=== PATIENT | female | born 1975 | race African-American/Black ===

== ENCOUNTER 2016-09-23 22:32 | Emergency (ER) | payer MEDICARE, MEDICAID ==
[~2016-09-23] VITALS: Ht 152.4 cm; Wt 72.6 kg
[~2016-09-23 22:32] MED LIST: ALBU8.5H5 INH; DIAZ5TAB PO
[2016-09-23] MEDS ORDERED: METOCLOPRAMIDE 5 MG/ML, 2ML IVPush ONE (23:30)
[2016-09-23] MEDS ORDERED: KETOROLAC 30 MG/1 ML IVPush ONE (23:30)
[2016-09-23] MEDS ORDERED: SODIUM CHLORIDE 0.9% 1,000ML IVBOLUS ONE (23:30)
[2016-09-23] MEDS ORDERED: DIPHENHYDRAMINE 50 MG/ML, 1ML IVPush ONE (23:30)
[2016-09-23 23:45] LABS: HEMOGLOBIN 13.2 g/dL (11.7-16.4)
[2016-09-23 23:52] LABS: BLOOD UREA NITROGEN 12 mg/dL (7-18)
[2016-09-24] MEDS ORDERED: METOCLOPRAMIDE 5 MG/ML, 2ML IM ONE (03:30)
[2016-09-24] MEDS ORDERED: KETOROLAC 30 MG/1 ML IM ONE (03:30)
[2016-09-24] MEDS ORDERED: DIPHENHYDRAMINE 25 MG CAPSULE PO ONE (03:30)
[2016-09-24] MEDS ORDERED: DEXAMETHASONE 4 MG TABLET PO ONE (03:30)
[2016-09-24] MEDS ORDERED: KETOROLAC 30 MG/1 ML ONE (03:37)
[2016-09-24] MEDS ORDERED: DEXAMETHASONE 4 MG TABLET ONE (03:38)
[2016-09-24] MEDS ORDERED: METOCLOPRAMIDE 5 MG/ML, 2ML ONE (03:38)
[2016-09-24] MEDS ORDERED: DIPHENHYDRAMINE 50 MG CAPSULE ONE (03:38)
[2016-09-24 04:28] VITALS: BP 133/98
== END 2016-09-24 04:31 | disposition home or self-care (01) ==
LOC: ED 23:59
DX: G89.29 Other chronic pain (principal); G43.909 Migraine, unspecified, not intractable, without status migrainosus; J45.909 Unspecified asthma, uncomplicated; I10 Essential (primary) hypertension
CPT/HCPCS: 36415; 80048; 82040; 85025; 96372; 99284; J1885; J2765; Q0163

== ENCOUNTER 2016-11-02 13:32 | Emergency (ER) | payer MEDICARE, MEDICAID ==
[~2016-11-02] VITALS: Ht 152.4 cm; Wt 71.7 kg
[2016-11-02] MEDS ORDERED: PROP10TA PO (14:06)
[2016-11-02] MEDS ORDERED: SUMA100T4 PO (14:06)
[2016-11-02] MEDS ORDERED: SODIUM CHLORIDE 0.9% 1,000 ML IV ONE (14:41)
[2016-11-02] MEDS ORDERED: KETOROLAC 30 MG/1 ML ONE (14:50)
[2016-11-02] MEDS ORDERED: ASPIRIN 81 MG TABLET CHEW ONE (14:50)
[2016-11-02] MEDS ORDERED: ONDANSETRON 2MG/ML, 2ML ONE (14:50)
[2016-11-02] MEDS ORDERED: MORPHINE SULFATE 4 MG/ML, 1ML ONE ×2 (14:50→15:37)
[2016-11-02] MEDS: MORPHINE SULFATE 4 MG/ML, 1ML IVPush PRN ×2 (14:54→15:40)
[2016-11-02] MEDS ORDERED: ONDANSETRON 2MG/ML, 2ML IVPush ONE (15:00)
[2016-11-02] MEDS ORDERED: ASPIRIN 81 MG TABLET CHEW PO ONE (15:00)
[2016-11-02] MEDS ORDERED: KETOROLAC 30 MG/1 ML IVPush ONE (15:00)
[2016-11-02 15:10] LABS: ASPARTATE AMINO TRANSFERASE 17 U/L (15-37); BLOOD UREA NITROGEN 11 mg/dL (7-18)
[2016-11-02 15:14] LABS: IS PT STATUS REG ER OR PRE ER? YES
[2016-11-02 15:50] VITALS: BP 114/80
== END 2016-11-02 15:58 | disposition home or self-care (01) ==
LOC: ED 15:52
DX: R07.89 Other chest pain (principal); J45.909 Unspecified asthma, uncomplicated
CPT/HCPCS: 36415; 71010; 80053; 84484; 85025; 85610; 93005; 96361; 96374; 96375; 96376; 99285; J1885; J2405; J7030

== ENCOUNTER 2016-11-16 19:46 | Emergency (ER) | payer MEDICARE, MEDICAID ==
[~2016-11-16] VITALS: Ht 152.4 cm; Wt 72.5 kg
[~2016-11-16 19:46] MED LIST changes: +PROP10TA PO; +SUMA100T4 PO
[2016-11-16] MEDS ORDERED: ASPIRIN 81 MG TABLET CHEW PO ONE (20:30)
[2016-11-16] MEDS ORDERED: METOPROLOL 1 MG/ML, 5ML IVPush PRN (20:30)
[2016-11-16] MEDS ORDERED: NITROGLYCERIN SINGLE TAB 0.4 MG SL PRN (20:30)
[2016-11-16] MEDS ORDERED: SODIUM CHLORIDE FLUSH 10ML SYR IVF ONE (20:30)
[2016-11-16] MEDS ORDERED: NITROGLYCERIN SINGLE TAB 0.4 MG SL ONE (20:37)
[2016-11-16] MEDS ORDERED: ASPIRIN 81 MG TABLET CHEW ONE (20:37)
[2016-11-16] MEDS ORDERED: METOPROLOL 1 MG/ML, 5ML ONE (20:37)
[2016-11-16 20:58] LABS: ASPARTATE AMINO TRANSFERASE 25 U/L (15-37); BLOOD UREA NITROGEN 11 mg/dL (7-18)
[2016-11-16 21:05] VITALS: BP 125/89
[2016-11-16 21:08] LABS: IS PT STATUS REG ER OR PRE ER? YES
[2016-11-16] MEDS ORDERED: ONDANSETRON 2MG/ML, 2ML ONE (21:09)
[2016-11-16 21:17] LABS: DIFF TOTAL CELLS COUNTED 100 CELL DIFF
[2016-11-16 21:24] LABS: VERIFY COUNTS? YES
[2016-11-16] MEDS ORDERED: ONDANSETRON 2MG/ML, 2ML IVPush ONE (21:30)
[2016-11-16] MEDS ORDERED: METRONIDAZOLE PMX 500MG/100ML 100 ML ONE (22:00)
== END 2016-11-16 22:36 | disposition home or self-care (01) ==
LOC: ED 21:50
DX: G43.909 Migraine, unspecified, not intractable, without status migrainosus (principal); R07.89 Other chest pain; I10 Essential (primary) hypertension; J45.909 Unspecified asthma, uncomplicated; F12.90 Cannabis use, unspecified, uncomplicated
CPT/HCPCS: 36415; 71010; 80053; 84484; 85025; 93005; 96374; 96375; 99285; J2405

== ENCOUNTER 2016-11-21 10:55 | Emergency (ER) | payer MEDICARE, MEDICAID ==
[~2016-11-21] VITALS: Ht 152.4 cm; Wt 73.0 kg
[2016-11-21] MEDS ORDERED: KETOROLAC 30 MG/1 ML IM ONE (11:30)
[2016-11-21] MEDS ORDERED: DIAZEPAM 5 MG TABLET PO ONE (11:30)
[2016-11-21] MEDS ORDERED: KETOROLAC 30 MG/1 ML ONE (11:49)
[2016-11-21] MEDS ORDERED: DIAZEPAM 5 MG TABLET ONE (11:49)
[2016-11-21 13:06] VITALS: BP 136/79
== END 2016-11-21 13:13 | disposition home or self-care (01) ==
LOC: ED 12:15
DX: S39.012A Strain of muscle, fascia and tendon of lower back, initial encounter (principal); I10 Essential (primary) hypertension; J45.909 Unspecified asthma, uncomplicated; X58.XXXA Exposure to other specified factors, initial encounter; Y93.89 Activity, other specified; Y92.89 Other specified places as the place of occurrence of the external cause; Y99.9 Unspecified external cause status
CPT/HCPCS: 72110; 96372; 99284; J1885

== ENCOUNTER 2017-01-14 20:51 | Emergency (ER) | payer MEDICARE, MEDICAID ==
[~2017-01-14] VITALS: Ht 152.4 cm; Wt 70.0 kg
[2017-01-14] MEDS ORDERED: ALBUTEROL SULFATE 2.5 MG/3 ML NPPB ONE (21:30)
[2017-01-14] MEDS ORDERED: ALBUTEROL SULFATE 2.5 MG/3 ML ONE (21:31)
[2017-01-14] MEDS ORDERED: ACETAMINOPHEN 325 MG TABLET PO ONE (22:00)
[2017-01-14 22:15] LABS: BLOOD UREA NITROGEN 10 mg/dL (7-18)
[2017-01-14 22:20] LABS: IS PT STATUS REG ER OR PRE ER? YES
[2017-01-14] MEDS ORDERED: ACETAMINOPHEN 325 MG TABLET ONE (22:32)
[2017-01-14 22:37] VITALS: BP 118/91
== END 2017-01-14 22:58 | disposition home or self-care (01) ==
LOC: ED 21:30
DX: J45.31 Mild persistent asthma with (acute) exacerbation (principal); I10 Essential (primary) hypertension; F17.200 Nicotine dependence, unspecified, uncomplicated
CPT/HCPCS: 36415; 71010; 80048; 82040; 84484; 85025; 93005; 94640; 99285; J7512; J7613

== ENCOUNTER 2017-07-28 17:16 | Emergency (ER) | payer MEDICARE, MEDICAID ==
[2017-07-28] MEDS ORDERED: ASPIRIN 81 MG TABLET CHEW PO ONE (17:30)
[2017-07-28] MEDS ORDERED: SODIUM CHLORIDE FLUSH 10ML SYR IVF ONE (17:30)
[2017-07-28] MEDS ORDERED: PLEASE ENTER HEIGHT AND WEIGHT MC SCH (17:30)
[2017-07-28 17:50] LABS: BASOPHILS # (AUTO) 0.03 x10^3/uL (0-0.1); BASOPHILS % (AUTO) 1 % (0-1); EOSINOPHILS # (AUTO) 0.08 x10^3/uL (0-0.4); EOSINOPHILS % (AUTO) 1 % (1-7); LYMPHOCYTES # (AUTO) 2.52 x10^3/uL (1-3.4); LYMPHOCYTES % (AUTO) 36 % (22-44); MD NO; MEAN CORPUSCULAR HGB CONC 33.8 g/dL (32.4-35.8); MEAN CORPUSCULAR VOLUME 94.7 fL (80-100); MEAN PLATELET VOLUME 7.9 fL (7.4-10.4); MONOCYTES # (AUTO) 0.63 x10^3/uL (0.2-0.8); MONOCYTES % (AUTO) 9 % (2-9); NEUTROPHILS # (AUTO) 3.75 x10^3/uL (1.8-6.8); NEUTROPHILS % (AUTO) 53 % (42-75); PLATELET COUNT 352 x10^3/uL (130-400); RED BLOOD COUNT 4.22 x10^6/uL (3.82-5.3); RED CELL DISTRIBUTION WIDTH 13.9 % (9.6-15.2)
[2017-07-28 18:00] LABS: ALBUMIN 3.6 g/dL (3.4-5.0); ANION GAP 5 mmol/L (5-15); CALCIUM 9.1 mg/dL (8.5-10.1); CHLORIDE 100 mmol/L (98-107); CREATININE 0.81 mg/dL (0.55-1.02)
[2017-07-28] MEDS ORDERED: SODIUM CHLORIDE 0.9% 1,000ML IVBOLUS ONE (18:00)
[2017-07-28 18:04] LABS: TROPONIN I < 0.015 ng/mL (0.000-0.045)
[2017-07-28] MEDS ORDERED: POTASSIUM CHLORIDE 20 MEQ TAB.ER.PRT PO ONE (19:00)
[2017-07-28] MEDS ORDERED: ASPIRIN 81 MG TABLET CHEW ONE (19:06)
[2017-07-28] MEDS ORDERED: POTASSIUM CHLORIDE 20 MEQ TAB.ER.PRT ONE (19:06)
[2017-07-28] MEDS ORDERED: ACETAMINOPHEN 325 MG TABLET ONE (19:24)
[2017-07-28] MEDS ORDERED: ACETAMINOPHEN 325 MG TABLET PO ONE (20:00)
[2017-07-28 20:18] VITALS: BP 112/72
== END 2017-07-28 20:21 | disposition home or self-care (01) ==
LOC: ED 20:00
DX: E87.6 Hypokalemia (principal); E86.0 Dehydration; R07.9 Chest pain, unspecified; I10 Essential (primary) hypertension; G43.909 Migraine, unspecified, not intractable, without status migrainosus
CPT/HCPCS: 36415; 71045; 80048; 82040; 83880; 84484; 85025; 93005; 99285; J7030

== ENCOUNTER 2018-01-24 12:53 | Emergency (ER) | payer MEDICARE, MEDICAID ==
[~2018-01-24] VITALS: Ht 152.4 cm; Wt 60.0 kg
[2018-01-24] MEDS ORDERED: METHOCARBAMOL 750 MG TABLET ONE (13:22)
[2018-01-24] MEDS ORDERED: HYDROcodone/APAP 5/325 TABLET ONE (13:23)
[2018-01-24] MEDS ORDERED: HYDROcodone/APAP 5/325 TABLET PO ONE (13:30)
[2018-01-24] MEDS ORDERED: METHOCARBAMOL 750 MG TABLET PO ONE (13:30)
[2018-01-24 14:35] VITALS: BP 129/90
== END 2018-01-24 14:36 | disposition home or self-care (01) ==
LOC: ED 14:04
DX: S16.1XXA Strain of muscle, fascia and tendon at neck level, initial encounter (principal); M47.896 Other spondylosis, lumbar region; M47.892 Other spondylosis, cervical region; I10 Essential (primary) hypertension; J45.909 Unspecified asthma, uncomplicated; V43.62XA Car passenger injured in collision with other type car in traffic accident, initial encounter; Y93.89 Activity, other specified; Y92.89 Other specified places as the place of occurrence of the external cause; Y99.8 Other external cause status
CPT/HCPCS: 72050; 72110; 99284

== ENCOUNTER 2018-01-29 15:11 | Emergency (ER) | payer MEDICARE, MEDICAID ==
[~2018-01-29] VITALS: Ht 152.4 cm; Wt 59.5 kg
[2018-01-29] MEDS ORDERED: PLEASE ENTER HEIGHT AND WEIGHT MC SCH (15:30)
[2018-01-29] MEDS ORDERED: SODIUM CHLORIDE FLUSH 10ML SYR IVF ONE (15:30)
[2018-01-29] MEDS ORDERED: ONDANSETRON 2MG/ML, 2ML IVPush ONE (15:30)
[2018-01-29] MEDS ORDERED: ONDANSETRON 2MG/ML, 2ML ONE (15:38)
[2018-01-29] MEDS ORDERED: MORPHINE SULFATE 4 MG/ML, 1ML ONE ×2 (15:38→16:28)
[2018-01-29] MEDS: MORPHINE SULFATE 4 MG/ML, 1ML IVPush PRN ×2 (15:40→16:35)
[2018-01-29 16:00] LABS: BASOPHILS # (AUTO) 0.02 x10^3/uL (0-0.1); BASOPHILS % (AUTO) 0 % (0-1); EOSINOPHILS # (AUTO) 0.05 x10^3/uL (0-0.4); EOSINOPHILS % (AUTO) 1 % (1-7); LYMPHOCYTES # (AUTO) 2.62 x10^3/uL (1-3.4); LYMPHOCYTES % (AUTO) 34 % (22-44); MD NO; MEAN CORPUSCULAR HEMOGLOBIN 32.8 pg (27.0-34.8); MEAN CORPUSCULAR HGB CONC 34.3 g/dL (32.4-35.8); MEAN CORPUSCULAR VOLUME 95.5 fL (80-100); MEAN PLATELET VOLUME 8.2 fL (7.4-10.4); MONOCYTES # (AUTO) 0.84 x10^3/uL (0.2-0.8); MONOCYTES % (AUTO) 11 % (2-9); NEUTROPHILS % (AUTO) 54 % (42-75); PLATELET COUNT 238 x10^3/uL (130-400); RED BLOOD COUNT 4.44 x10^6/uL (3.82-5.3)
[2018-01-29 16:10] LABS: ALBUMIN 3.8 g/dL (3.4-5.0); ANION GAP 10 mmol/L (5-15); CHLORIDE 103 mmol/L (98-107)
[2018-01-29 16:14] LABS: TROPONIN I < 0.015 ng/mL (0.000-0.045)
[2018-01-29] MEDS ORDERED: POTASSIUM CHLORIDE 20 MEQ TAB.ER.PRT ONE (16:28)
[2018-01-29] MEDS ORDERED: POTASSIUM CHLORIDE 20 MEQ TAB.ER.PRT PO ONE (16:30)
[2018-01-29] MEDS ORDERED: HYDROmorphone 2 MG/ML, 1ML ONE (19:32)
[2018-01-29] MEDS ORDERED: OMNIPAQUE 350 MG/ML, 100ML BOTTLE ONE (19:36)
[2018-01-29] MEDS ORDERED: HYDROmorphone 2 MG/ML, 1ML IVPush PRN (20:00)
[2018-01-29 21:05] VITALS: BP 115/79
[2018-01-29] MEDS ORDERED: DIPHENHYDRAMINE 25 MG CAPSULE ONE (21:09)
[2018-01-29] MEDS ORDERED: DIPHENHYDRAMINE 25 MG CAPSULE PO ONE (21:30)
== END 2018-01-29 21:12 | disposition home or self-care (01) ==
LOC: ED 18:13
DX: R07.9 Chest pain, unspecified (principal); M25.512 Pain in left shoulder; J45.909 Unspecified asthma, uncomplicated; I10 Essential (primary) hypertension; E87.6 Hypokalemia
CPT/HCPCS: 36415; 71045; 71275; 73030; 80048; 82040; 84484; 84703; 85025; 85379; 93005; 96374; 96375; 96376; 99285; J1170; J2405; Q0163; Q9967

== ENCOUNTER → 2018-03-13 | Outpatient (CLI) | payer MEDICARE, MEDICAID | END | disposition home or self-care (01) | LOC: CFH 07:32 | PROVIDERS: ATTEND Nurse Practitioner | DX: M50.123 Cervical disc disorder at C6-C7 level with radiculopathy (principal) | CPT/HCPCS: 72050; 72141 ==

== ENCOUNTER 2018-04-18 18:22 | Emergency (ER) | payer MEDICARE, MEDICAID ==
[~2018-04-18] VITALS: Ht 165.1 cm; Wt 59.1 kg
[2018-04-18] MEDS ORDERED: LORazepam 2 MG/ML, 1ML IVPush ONE (19:00)
[2018-04-18] MEDS ORDERED: SODIUM CHLORIDE 0.9% 1,000ML IVBOLUS ONE (19:00)
[2018-04-18] MEDS ORDERED: LORazepam 2 MG/ML, 1ML ONE (19:04)
[2018-04-18 19:16] LABS: MEAN CORPUSCULAR HEMOGLOBIN 32.8 pg (27.0-34.8); MEAN CORPUSCULAR HGB CONC 34.2 g/dL (32.4-35.8); MEAN CORPUSCULAR VOLUME 95.9 fL (80-100); MEAN PLATELET VOLUME 7.8 fL (7.4-10.4); PLATELET COUNT 409 x10^3/uL (130-400); RED BLOOD COUNT 4.38 x10^6/uL (3.82-5.3); RED CELL DISTRIBUTION WIDTH 13.7 % (9.6-15.2)
[2018-04-18 19:29] LABS: ALBUMIN 3.6 g/dL (3.4-5.0); ANION GAP 15 mmol/L (5-15); CALCIUM 8.5 mg/dL (8.5-10.1); CHLORIDE 98 mmol/L (98-107)
[2018-04-18 19:35] LABS: ALANINE AMINOTRANSFERASE 28 U/L (12-78); ALKALINE PHOSPHATASE 57 U/L (45-117); BILIRUBIN,TOTAL 0.5 mg/dL (0.2-1.0); CREATININE 0.85 mg/dL (0.55-1.02); TOTAL PROTEIN 9.1 g/dL (6.4-8.2); TROPONIN I < 0.015 ng/mL (0.000-0.045)
[2018-04-18 19:55] LABS: MD YES
[2018-04-18 19:59] LABS: <PLATELET ESTIMATE> INCREASED; <PLT MORPHOLOGY> NORMAL PLT MORPH; <RBC MORPHOLOGY> NORMAL; EOS#(MANUAL) 0.08 x10^3/uL (0.0-0.4); EOS% (MANUAL) 1 % (1-7); LYMPHS% (MANUAL) 50 % (22-44); MONOS#(MANUAL) 0.41 x10^3/uL (0.3-2.7); MONOS% (MANUAL) 5 % (2-9); SEG#(MANUAL) 3.61 x10^3/uL (1.8-6.8); SEGS% (MANUAL) 44 % (42-75)
[2018-04-18] MEDS ORDERED: POTASSIUM CHLORIDE 20 MEQ TAB.ER.PRT PO ONE (20:00)
[2018-04-18] MEDS ORDERED: POTASSIUM CHLORIDE 20 MEQ TAB.ER.PRT ONE (20:15)
[2018-04-18 20:25] LABS: CULTURE INDICATED? YES; MICROSCOPIC INDICATED
[2018-04-18 20:31] LABS: AMPHETAMINE SCREEN, URINE Negative (Negative); BARBITURATE SCREEN, URINE Negative (Negative); BENZODIAZEPINE SCREEN, URINE Positive (Negative); CANNABINOID SCREEN, URINE Positive (Negative); COCAINE SCREEN, URINE Negative (Negative); METHADONE SCREEN, URINE Negative (Negative); OPIATE SCREEN, URINE Negative (Negative)
[2018-04-18] MEDS ORDERED: PROCHLORPERAZINE 5 MG/ML, 2ML ONE (21:57)
[2018-04-18] MEDS ORDERED: DIPHENHYDRAMINE 50 MG/ML, 1ML ONE (21:57)
[2018-04-18] MEDS ORDERED: KETOROLAC 30 MG/1 ML ONE (21:58)
[2018-04-18] MEDS ORDERED: DIPHENHYDRAMINE 50 MG/ML, 1ML IVPush ONE (22:00)
[2018-04-18] MEDS ORDERED: KETOROLAC 30 MG/1 ML IVPush ONE (22:00)
[2018-04-18] MEDS ORDERED: PROCHLORPERAZINE 5 MG/ML, 2ML IVPush ONE (22:00)
[2018-04-18 23:00] VITALS: BP 101/74
== END 2018-04-18 23:39 | disposition home or self-care (01) ==
LOC: ED 19:33
DX: F41.1 Generalized anxiety disorder (principal); E87.6 Hypokalemia; G44.219 Episodic tension-type headache, not intractable; R07.89 Other chest pain; G43.909 Migraine, unspecified, not intractable, without status migrainosus; M54.9 Dorsalgia, unspecified; G89.29 Other chronic pain
CPT/HCPCS: 36415; 71045; 80053; 80307; 81001; 84484; 85025; 87077; 87086; 93005; 96374; 96375; 99285; J0780; J1200; J1885; J2060; J7030

== ENCOUNTER 2018-04-26 15:06 | Emergency (ER) | payer MEDICARE, MEDICAID ==
[~2018-04-26] VITALS: Ht 152.4 cm; Wt 60.9 kg
[2018-04-26] MEDS ORDERED: SODIUM CHLORIDE FLUSH 10ML SYR IVF ONE ×2 (16:00→18:00)
[2018-04-26 16:21] LABS: BASOPHILS # (AUTO) 0.22 x10^3/uL (0-0.1); BASOPHILS % (AUTO) 4 % (0-1); EOSINOPHILS # (AUTO) 0.07 x10^3/uL (0-0.4); EOSINOPHILS % (AUTO) 1 % (1-7); LYMPHOCYTES # (AUTO) 2.16 x10^3/uL (1-3.4); LYMPHOCYTES % (AUTO) 34 % (22-44); MD NO; MEAN CORPUSCULAR HEMOGLOBIN 31.9 pg (27.0-34.8); MEAN CORPUSCULAR HGB CONC 33.5 g/dL (32.4-35.8); MEAN CORPUSCULAR VOLUME 95.2 fL (80-100); MEAN PLATELET VOLUME 8.8 fL (7.4-10.4); MONOCYTES % (AUTO) 11 % (2-9); NEUTROPHILS # (AUTO) 3.19 x10^3/uL (1.8-6.8); NEUTROPHILS % (AUTO) 50 % (42-75); PLATELET COUNT 263 x10^3/uL (130-400); RED BLOOD COUNT 4.22 x10^6/uL (3.82-5.3); RED CELL DISTRIBUTION WIDTH 13.6 % (9.6-15.2)
[2018-04-26 16:26] LABS: ALANINE AMINOTRANSFERASE 20 U/L (12-78); ALBUMIN 3.6 g/dL (3.4-5.0); ANION GAP 8 mmol/L (5-15); CALCIUM 8.7 mg/dL (8.5-10.1); CHLORIDE 101 mmol/L (98-107); CREATININE 0.73 mg/dL (0.55-1.02)
[2018-04-26 16:30] LABS: ALKALINE PHOSPHATASE 48 U/L (45-117); BILIRUBIN,TOTAL 0.4 mg/dL (0.2-1.0); TOTAL PROTEIN 8.8 g/dL (6.4-8.2)
[2018-04-26] MEDS ORDERED: ONDANSETRON ODT 4 MG ONE (17:40)
[2018-04-26] MEDS ORDERED: DIPHENHYDRAMINE 50 MG/ML, 1ML ONE (17:40)
[2018-04-26] MEDS ORDERED: KETOROLAC 30 MG/1 ML ONE (17:40)
[2018-04-26] MEDS ORDERED: ONDANSETRON ODT 4 MG PO ONE (18:00)
[2018-04-26] MEDS ORDERED: DIPHENHYDRAMINE 50 MG/ML, 1ML IVPush ONE (18:00)
[2018-04-26] MEDS ORDERED: KETOROLAC 30 MG/1 ML IVPush ONE (18:00)
[2018-04-26 18:47] VITALS: BP 112/78
== END 2018-04-26 18:51 | disposition home or self-care (01) ==
LOC: ED 18:08
DX: G43.009 Migraine without aura, not intractable, without status migrainosus (principal); N64.4 Mastodynia; I10 Essential (primary) hypertension; M54.5 Low back pain; G89.29 Other chronic pain; J45.909 Unspecified asthma, uncomplicated
CPT/HCPCS: 36415; 80053; 84703; 85025; 96374; 96375; 99284; J1200; J1885; Q0162

== ENCOUNTER 2018-05-08 13:14 | Emergency (ER) | payer MEDICARE, MEDICAID ==
[~2018-05-08] VITALS: Ht 152.4 cm; Wt 59.5 kg
[2018-05-08] MEDS ORDERED: DIPHENHYDRAMINE 50 MG/ML, 1ML IVPush ONE (14:00)
[2018-05-08] MEDS ORDERED: METOCLOPRAMIDE 5 MG/ML, 2ML IVPush ONE (14:00)
[2018-05-08 14:08] LABS: MEAN CORPUSCULAR HEMOGLOBIN 32.7 pg (27.0-34.8); MEAN CORPUSCULAR HGB CONC 34.3 g/dL (32.4-35.8); MEAN CORPUSCULAR VOLUME 95.3 fL (80-100); MEAN PLATELET VOLUME 8.8 fL (7.4-10.4); PLATELET COUNT 312 x10^3/uL (130-400); RED BLOOD COUNT 4.34 x10^6/uL (3.82-5.3); RED CELL DISTRIBUTION WIDTH 13.3 % (9.6-15.2)
[2018-05-08 14:20] LABS: ALBUMIN 3.8 g/dL (3.4-5.0); ANION GAP 11 mmol/L (5-15); CALCIUM 8.7 mg/dL (8.5-10.1); CHLORIDE 102 mmol/L (98-107)
[2018-05-08 14:23] LABS: ALANINE AMINOTRANSFERASE 23 U/L (12-78); ALKALINE PHOSPHATASE 55 U/L (45-117); BILIRUBIN,TOTAL 0.7 mg/dL (0.2-1.0); CREATININE 0.83 mg/dL (0.55-1.02); TOTAL PROTEIN 9.2 g/dL (6.4-8.2)
[2018-05-08] MEDS ORDERED: POTASSIUM CHLORIDE 10% 40 MEQ/30 ML UDC PO ONE (15:00)
[2018-05-08] MEDS ORDERED: METOCLOPRAMIDE 5 MG/ML, 2ML ONE (15:05)
[2018-05-08] MEDS ORDERED: POTASSIUM CHLORIDE 20 MEQ TAB.ER.PRT ONE (15:08)
[2018-05-08 15:22] LABS: BASOPHILS # (AUTO) 0.14 x10^3/uL (0-0.1); BASOPHILS % (AUTO) 2 % (0-1); EOSINOPHILS # (AUTO) 0.07 x10^3/uL (0-0.4); EOSINOPHILS % (AUTO) 1 % (1-7); LYMPHOCYTES # (AUTO) 2.24 x10^3/uL (1-3.4); LYMPHOCYTES % (AUTO) 30 % (22-44); MD SCAN; MONOCYTES # (AUTO) 0.89 x10^3/uL (0.2-0.8); MONOCYTES % (AUTO) 12 % (2-9); NEUTROPHILS # (AUTO) 4.05 x10^3/uL (1.8-6.8); NEUTROPHILS % (AUTO) 55 % (42-75)
[2018-05-08] MEDS ORDERED: DEXAMETHASONE 4 MG TABLET ONE (16:57)
[2018-05-08] MEDS ORDERED: SUMATRIPTAN 6MG/0.5ML SQ ONE ×2 (16:57→17:00)
[2018-05-08] MEDS ORDERED: KETOROLAC 30 MG/1 ML ONE (16:58)
[2018-05-08] MEDS ORDERED: DEXAMETHASONE 4 MG/ML, 1ML PO ONE (17:00)
[2018-05-08] MEDS ORDERED: KETOROLAC 30 MG/1 ML IVPush ONE (17:00)
[2018-05-08 19:07] VITALS: BP 112/68
== END 2018-05-08 19:09 | disposition home or self-care (01) ==
LOC: ED 16:06
DX: G43.009 Migraine without aura, not intractable, without status migrainosus (principal); F41.1 Generalized anxiety disorder; I10 Essential (primary) hypertension; G89.29 Other chronic pain; J45.909 Unspecified asthma, uncomplicated; F17.200 Nicotine dependence, unspecified, uncomplicated; Z88.6 Allergy status to analgesic agent
CPT/HCPCS: 36415; 70450; 80053; 85025; 93005; 96372; 96374; 96375; 99285; J1200; J1885; J2765; J3030

== ENCOUNTER 2018-05-14 16:13 | Emergency (ER) | payer MEDICARE, MEDICAID ==
[~2018-05-14] VITALS: Ht 152.4 cm; Wt 58.6 kg
[2018-05-14 16:16] VITALS: BP 102/74
[2018-05-14] MEDS ORDERED: HYDROcodone/APAP 5/325 TABLET PO ONE (17:00)
== END 2018-05-14 17:13 | disposition home or self-care (01) ==
LOC: ED 16:15
DX: G89.29 Other chronic pain (principal); N64.4 Mastodynia; J45.909 Unspecified asthma, uncomplicated; F41.9 Anxiety disorder, unspecified; G43.909 Migraine, unspecified, not intractable, without status migrainosus
CPT/HCPCS: 99282

== ENCOUNTER 2018-07-05 19:24 | Observation (INO) | payer MEDICARE, MEDICAID ==
[~2018-07-05] VITALS: Ht 152.4 cm; Wt 62.0 kg
--- NOTE | 2018-07-05 19:39 | NUR ---
PT REPORTS COUGH CONGESTION AND CP WITH SOB X PAST 2 WEEKS
[2018-07-05] MEDS ORDERED: ALBUTEROL/IPRATROPIUM 2.5MG/0.5MG, 3 ML NPPB ONE (20:00)
[2018-07-05] MEDS ORDERED: ALBUTEROL/IPRATROPIUM 2.5MG/0.5MG, 3 ML ONE (20:14)
[2018-07-05 20:33] LABS: BASOPHILS # (AUTO) 0.08 x10^3/uL (0-0.1); BASOPHILS % (AUTO) 1 % (0-1); EOSINOPHILS % (AUTO) 2 % (1-7); LYMPHOCYTES # (AUTO) 2.53 x10^3/uL (1-3.4); LYMPHOCYTES % (AUTO) 25 % (22-44); MD NO; MEAN CORPUSCULAR HGB CONC 33.6 g/dL (32.4-35.8); MEAN CORPUSCULAR VOLUME 95.3 fL (80-100); MEAN PLATELET VOLUME 7.6 fL (7.4-10.4); MONOCYTES # (AUTO) 1.02 x10^3/uL (0.2-0.8); MONOCYTES % (AUTO) 10 % (2-9); NEUTROPHILS # (AUTO) 6.29 x10^3/uL (1.8-6.8); NEUTROPHILS % (AUTO) 62 % (42-75); PLATELET COUNT 441 x10^3/uL (130-400); RED BLOOD COUNT 3.76 x10^6/uL (3.82-5.3); RED CELL DISTRIBUTION WIDTH 13.9 % (9.6-15.2)
[2018-07-05 20:37] LABS: ALBUMIN 2.8 g/dL (3.4-5.0); CALCIUM 8.9 mg/dL (8.5-10.1); CREATININE 0.73 mg/dL (0.55-1.02)
[2018-07-05 20:41] LABS: TROPONIN I < 0.015 ng/mL (0.000-0.045)
[2018-07-05 20:55] LABS: ANION GAP 9 mmol/L (5-15); CHLORIDE 95 mmol/L (98-107)
[2018-07-05] MEDS ORDERED: POTASSIUM CHLORIDE 20 MEQ TAB.ER.PRT ONE (21:17)
--- NOTE | 2018-07-05 21:23 | NUR ---
PT DESATED TO 78 ON ROOM AIR PLACED ON 2 L NC MD NOTIFIED, AWAITING ADMIT AT THIS TIME
[2018-07-05] MEDS ORDERED: ACETAMINOPHEN 325 MG TABLET PO ONE (21:30)
[2018-07-05] MEDS ORDERED: ALBUTEROL/IPRATROPIUM 2.5MG/0.5MG, 3 ML NPPB PRN (21:30)
[2018-07-05] MEDS ORDERED: POTASSIUM CHLORIDE 20 MEQ TAB.ER.PRT PO ONE (21:30)
[2018-07-05] MEDS ORDERED: ALBUTEROL SULFATE 2.5 MG/3 ML ONE (21:37)
[2018-07-05] MEDS ORDERED: hydrALAzine 20 MG/ML, 1ML IVPush PRN (22:00)
[2018-07-05] MEDS: ENOXAPARIN 40 MG/0.4 ML SQ SCH (22:00)
[2018-07-05] MEDS ORDERED: ONDANSETRON ODT 4 MG PO PRN (22:00)
[2018-07-05] MEDS ORDERED: ACETAMINOPHEN 325 MG TABLET PO PRN (22:00)
[2018-07-05] MEDS ORDERED: ALBUTEROL SULFATE 2.5 MG/3 ML NPPB PRN ×2 (22:00→22:30)
[2018-07-05] MEDS: POTASSIUM CHLORIDE 20 MEQ TAB.ER.PRT PO SCH (22:00)
[2018-07-05] MEDS ORDERED: ONDANSETRON 2MG/ML, 2ML IVPush PRN (22:00)
[2018-07-05 22:07] LABS: RAPID INFLUENZA A Negative (Negative); RAPID INFLUENZA B Negative (Negative)
[2018-07-05] MEDS ORDERED: ACETAMINOPHEN 325 MG TABLET ONE (22:07)
--- NOTE | 2018-07-05 22:20 | NUR ---
REPOR T TO ALONSO PT TO ROOM WITH TECH
[2018-07-05 22:40] VITALS: BP 111/76
[2018-07-05] MEDS ORDERED: HYDR50TA3 PO (22:49)
[2018-07-05] MEDS ORDERED: PROP80CA3 PO (22:49)
[2018-07-06] MEDS: GUAIFENESIN/COD200MG-20MG/10ML LIQUID PO PRN ×5 (00:01→23:52)
[2018-07-06] MEDS: NS + 20MEQ KCL 1,000 ML IV SCH ×3 (00:01→16:32)
[2018-07-06 02:00] VITALS: BP 109/78
[2018-07-06 06:13] LABS: ANION GAP 7 mmol/L (5-15); CALCIUM 8.1 mg/dL (8.5-10.1); CHLORIDE 99 mmol/L (98-107); CREATININE 0.59 mg/dL (0.55-1.02)
[2018-07-06] MEDS: ALBUTEROL/IPRATROPIUM 2.5MG/0.5MG, 3 ML NPPB SCH ×4 (07:15→21:05)
[2018-07-06] MEDS: BENZONATATE 100 MG CAPSULE PO SCH ×3 (07:51→21:00)
[2018-07-06] MEDS: POTASSIUM CHLORIDE 20 MEQ TAB.ER.PRT PO SCH ×4 (07:52→15:44)
[2018-07-06] MEDS: PROPRANOLOL 10 MG TABLET PO SCH ×3 (08:02→20:57)
[2018-07-06 08:17] VITALS: BP 103/72
[2018-07-06] MEDS ORDERED: BUTALB/APAP/CAFFEINE 50MG/325MG/40MG ONE (12:51)
[2018-07-06] MEDS: HYDROcodone/CHLORPHENIR ORAL SUSP PO PRN (12:53)
[2018-07-06] MEDS ORDERED: BUTALB/APAP/CAFFEINE 50MG/325MG/40MG PO PRN (13:00)
[2018-07-06 14:28] VITALS: BP 95/50
[2018-07-06] MEDS ORDERED: MAGNESIUM SULFATE PMX 4GM/100M 100 ML IV ONE (14:30)
[2018-07-06 20:00] VITALS: BP 106/74
[2018-07-06] MEDS: ENOXAPARIN 40 MG/0.4 ML SQ SCH (20:24)
[2018-07-06 21:02] VITALS: BP 99/66
[2018-07-07 02:00] VITALS: BP 98/66
[2018-07-07] MEDS: HYDROcodone/CHLORPHENIR ORAL SUSP PO PRN ×2 (04:06→16:02)
[2018-07-07] MEDS: NS + 20MEQ KCL 1,000 ML IV SCH ×2 (04:56→16:00)
[2018-07-07 06:51] LABS: ANION GAP 7 mmol/L (5-15); CALCIUM 7.2 mg/dL (8.5-10.1); CHLORIDE 107 mmol/L (98-107); CREATININE 0.59 mg/dL (0.55-1.02)
[2018-07-07] MEDS: ALBUTEROL/IPRATROPIUM 2.5MG/0.5MG, 3 ML NPPB SCH ×3 (07:00→15:00)
[2018-07-07 07:30] VITALS: BP 102/70
[2018-07-07] MEDS: POTASSIUM CHLORIDE 20 MEQ TAB.ER.PRT PO SCH ×4 (07:53→16:02)
[2018-07-07] MEDS: PROPRANOLOL 10 MG TABLET PO SCH ×2 (09:00→16:00)
[2018-07-07] MEDS: GUAIFENESIN/COD200MG-20MG/10ML LIQUID PO PRN (10:40)
[2018-07-07] MEDS: BENZONATATE 100 MG CAPSULE PO SCH ×2 (10:40→16:00)
[2018-07-07] MEDS ORDERED: LACTULOSE 20 GM/30 ML UDC PO ONE (11:00)
[2018-07-07] MEDS ORDERED: POTASSIUM CHLORIDE 10% 40 MEQ/30 ML UDC PO SCH (11:00)
[2018-07-07 14:33] VITALS: BP 118/70
[2018-07-07] MEDS ORDERED: PRED20TA PO (15:20)
[2018-07-07] MEDS ORDERED: DOXY100T PO (15:20)
[2018-07-07] MEDS ORDERED: BENZ100C PO (15:21)
== END 2018-07-07 17:52 | disposition home or self-care (01) ==
LOC: ED 21:12 → SUATTDRO 21:59 → EDIP 22:05 → 4EST 23:04
PROVIDERS: ADMIT Hospitalist; ATTEND Hospitalist
DX: J96.01 Acute respiratory failure with hypoxia (principal); E87.6 Hypokalemia; J45.909 Unspecified asthma, uncomplicated; I10 Essential (primary) hypertension; G43.909 Migraine, unspecified, not intractable, without status migrainosus; F17.210 Nicotine dependence, cigarettes, uncomplicated; E83.42 Hypomagnesemia; F41.1 Generalized anxiety disorder; Z87.01 Personal history of pneumonia (recurrent)
CPT/HCPCS: 36415; 71045; 80048; 82040; 83735; 84100; 84484; 85025; 87400; 93005; 94640; 96365; 96366; 96368; 99284; G0378; J3475; J3480; J7512; J7613; J7620

== ENCOUNTER 2019-08-03 10:49 | Emergency (ER) | payer MEDICARE, MEDICAID ==
[~2019-08-03] VITALS: Ht 152.4 cm; Wt 63.7 kg
[~2019-08-03 10:49] MED LIST changes: +BENZ100C PO; +DOXY100T PO; +HYDR50TA3 PO; +PRED20TA PO; -PROP10TA PO; +PROP10TA16 PO; +PROP80CA3 PO
--- NOTE | 2019-08-03 11:12 | NUR ---
PT HERE WITH C/O UPPER BACK PAIN S/P "BENDING OVER WEIRD" X 3 DAYS. PT TEARFUL IN ROOM.
--- NOTE | 2019-08-03 11:20 | NUR ---
PA AT BEDSIDE, PIV ESTABLISHED BY THIS RN.
[2019-08-03] MEDS ORDERED: KETOROLAC 30 MG/1 ML ONE (11:29)
[2019-08-03] MEDS ORDERED: DIAZEPAM 5 MG/ML, 2ML ONE (11:29)
[2019-08-03] MEDS ORDERED: SODIUM CHLORIDE FLUSH 10ML SYR IVF ONE (11:30)
[2019-08-03] MEDS ORDERED: OXYcodone/APAP 5/325MG TABLET PO ONE (11:30)
[2019-08-03] MEDS ORDERED: KETOROLAC 30 MG/1 ML IVPush ONE (11:30)
[2019-08-03] MEDS ORDERED: DIAZEPAM 5 MG/ML, 2ML IVPush ONE (11:30)
[2019-08-03] MEDS ORDERED: SODIUM CHLORIDE 0.9% 1,000ML IV ONE (11:30)
[2019-08-03] MEDS ORDERED: OXYcodone/APAP 5/325MG TABLET ONE (11:30)
--- NOTE | 2019-08-03 11:35 | NUR ---
PT MEDICATED PER ORDERS, PT TO CT WITH [employer] PROFESSOR.
[2019-08-03 11:45] VITALS: BP 133/71
--- NOTE | 2019-08-03 12:07 | NUR ---
ALL RESULTS BACK AT THIS TIME, CHART UP FOR RECHECK.
--- NOTE | 2019-08-03 12:29 | NUR ---
Patient/Caregiver given discharge instructions and they have confirmed that they understand the instructions. Patient ambulatory with steady gait. PIV REMOVED WITH TIP INTACT.
== END 2019-08-03 12:42 | disposition home or self-care (01) ==
LOC: ED 12:33
DX: S16.1XXA Strain of muscle, fascia and tendon at neck level, initial encounter (principal); S29.012A Strain of muscle and tendon of back wall of thorax, initial encounter; I10 Essential (primary) hypertension; J45.909 Unspecified asthma, uncomplicated; F17.200 Nicotine dependence, unspecified, uncomplicated; X58.XXXA Exposure to other specified factors, initial encounter; Y93.89 Activity, other specified; Y92.89 Other specified places as the place of occurrence of the external cause; Y99.8 Other external cause status
CPT/HCPCS: 72125; 72128; 96374; 96375; 99284; J1885; J3360; J7030